=== PATIENT | female | born 1950 | race Two or more races ===

== ENCOUNTER → 2018-01-13 11:16 | Outpatient (CLI) | payer OTHER ==
[~2018-01-13 11:16] MED LIST: ASACOL HD800 MG; CIPRO500 MG PO; DICY20TA PO; DIOVAN160 M1; FLAGYL500MG PO; GABAPENTIN600 MG PO; LEXAPRO5 MG; NEURIN SL; SINGULAIR10 MG PO; SYNTHROID88 MCG PO; ZETIA10 MG; ZOCOR5 MG PO
== END | disposition home or self-care (01) ==
LOC: LAB 11:16
DX: R10.84 Generalized abdominal pain (principal)

== ENCOUNTER → 2018-01-14 | Outpatient (CLI) | payer OTHER | END | disposition home or self-care (01) | LOC: TOM 10:42 | DX: K57.32 Diverticulitis of large intestine without perforation or abscess without bleeding (principal) ==

== ENCOUNTER 2019-10-16 16:15 | Outpatient (CLI) | payer OTHER | END 2019-10-16 16:54 | disposition home or self-care (01) | LOC: RAD 16:15 | DX: M25.571 Pain in right ankle and joints of right foot (principal); M79.671 Pain in right foot ==

== ENCOUNTER → 2020-11-11 06:44 | Outpatient (CLI) | payer OTHER | END | disposition home or self-care (01) | LOC: LAB 06:44 | PROVIDERS: ATTEND Anesthesiology | DX: K57.92 Diverticulitis of intestine, part unspecified, without perforation or abscess without bleeding (principal) ==

== ENCOUNTER 2021-02-10 15:25 | Outpatient (CLI) | payer OTHER | END 2021-02-10 18:00 | disposition home or self-care (01) | LOC: LAB 15:25 → CIR.AMB 15:25 → LAB 18:00 | DX: Z02.89 Encounter for other administrative examinations (principal) ==

== ENCOUNTER 2021-02-26 23:18 | Emergency (ER) | payer OTHER ==
[~2021-02-26] VITALS: Ht 147.3 cm; Wt 117.9 kg
[2021-02-27] MEDS ORDERED: AVALIDE 300-121 EACH (01:53)
[2021-02-27] MEDS ORDERED: LEXAPRO20 MG (01:54)
[2021-02-27] MEDS ORDERED: SYNTHROID100 MCG (01:54)
[2021-02-27] MEDS ORDERED: ZOCOR40 MG (01:54)
[2021-02-27] MEDS ORDERED: PEPCID40 MG PO (02:12)
[2021-02-27] MEDS ORDERED: TRAMADOL HCL50 MG PO (02:12)
== END 2021-02-27 02:37 | disposition home or self-care (01) ==
LOC: ER 23:18
DX: S80.02XA Contusion of left knee, initial encounter (principal); S30.0XXA Contusion of lower back and pelvis, initial encounter; V49.9XXA Car occupant (driver) (passenger) injured in unspecified traffic accident, initial encounter; Y93.89 Activity, other specified; Y92.488 Other paved roadways as the place of occurrence of the external cause; Y99.8 Other external cause status

== ENCOUNTER → 2021-03-05 | Outpatient (CLI) | payer OTHER ==
[~2021-03-05] MED LIST changes: +AVALIDE 300-121 EACH; +LEXAPRO20 MG; +PEPCID40 MG PO; +SYNTHROID100 MCG; +TRAMADOL HCL50 MG PO; +ZOCOR40 MG
== END | disposition home or self-care (01) ==
LOC: RAD 15:45
PROVIDERS: ATTEND Orthopaedic Surgery
DX: M25.562 Pain in left knee (principal)

== ENCOUNTER 2021-08-12 08:00 | Outpatient (CLI) | payer OTHER | END 2021-08-12 08:30 | disposition home or self-care (01) | LOC: PPH VACUNA 08:00 | PROVIDERS: ATTEND Emergency Medicine Pediatric Emergency Medicine | DX: Z23 Encounter for immunization (principal) ==

== ENCOUNTER 2021-10-13 09:00 | Outpatient (CLI) | payer OTHER | END 2021-10-13 09:15 | disposition home or self-care (01) | LOC: PPH VACUNA 09:00 | PROVIDERS: ATTEND Emergency Medicine Pediatric Emergency Medicine | DX: Z23 Encounter for immunization (principal) ==

== ENCOUNTER 2022-03-02 08:00 | Outpatient (CLI) | payer OTHER | END 2022-03-02 08:30 | disposition home or self-care (01) | LOC: PPH VACUNA 08:00 | PROVIDERS: ATTEND Emergency Medicine Pediatric Emergency Medicine | DX: Z23 Encounter for immunization (principal) ==

== ENCOUNTER 2023-06-10 10:50 | Outpatient (CLI) | payer OTHER | END 2023-06-10 10:57 | disposition home or self-care (01) | LOC: SONOGRAMA 10:50 | PROVIDERS: ATTEND Specialist | DX: R19.05 Periumbilic swelling, mass or lump (principal) ==

== ENCOUNTER 2023-07-26 09:00 | Outpatient (CLI) | payer OTHER | END 2023-07-29 09:15 | disposition home or self-care (01) | LOC: PPH VACUNA 09:00 | PROVIDERS: ATTEND Emergency Medicine Pediatric Emergency Medicine | DX: Z23 Encounter for immunization (principal) | CPT/HCPCS: 90653; G0008 ==